=== PATIENT | male | born 1950 | race Caucasian/White ===

== ENCOUNTER 2021-12-19 10:58 | Emergency (ER) | payer MEDICARE ==
[~2021-12-19 10:58] MED LIST: ASPIRIN EC81 MG PO; COREG 25MG TAB25 MG PO; FLOMAX 0.4 MG0.4 MG PO; LEVOTHYROXINE75 MCG PO; LOSARTAN POTAS100 MG PO; NITROSTAT0.4 MG SL; PANTOPRAZOLE SO40 MG PO; PIOGLITAZONE HC15 MG PO
[2021-12-19 11:23] LABS: HEMOGLOBIN 13.9 gm/dl (14.0-17.5); RED BLOOD COUNT 4.6 M/UL (4.20-5.50); WHITE BLOOD COUNT 10.4 K/UL (4.5-11.0)
[2021-12-19 11:54] LABS: BUN/CREATININE RATIO 20 (0-10)
[2021-12-19] MEDS ORDERED: COREG6.25 MG PO (14:34)
[2021-12-19] MEDS ORDERED: COREG3.125 MG PO (14:34)
== END 2021-12-19 16:45 | disposition home or self-care (01) ==
LOC: ER1 10:58
DX: R00.1 Bradycardia, unspecified (principal); I10 Essential (primary) hypertension; E78.5 Hyperlipidemia, unspecified; Z86.16 Personal history of COVID-19
CPT/HCPCS: 71045; 80053; 82550; 82553; 83880; 84484; 85025; 93005; 99284

== ENCOUNTER → 2022-01-01 | Outpatient (CLI) | payer MEDICARE ==
[~2022-01-01] MED LIST changes: +COREG3.125 MG PO; +COREG6.25 MG PO
== END ==
LOC: HEART 5 14:26
DX: I49.5 Sick sinus syndrome (principal)

== ENCOUNTER → 2022-01-25 | Outpatient (CLI) | payer MEDICARE | LOC: HEART 5 08:30 | DX: I20.8 Other forms of angina pectoris (principal); R06.02 Shortness of breath; I51.7 Cardiomegaly; I51.9 Heart disease, unspecified | CPT/HCPCS: 78452; 93306; A9502; J2785 ==